=== PATIENT | female | born 1985 | race Caucasian/White ===

== ENCOUNTER 2019-10-11 12:20 | Emergency (ER) | payer SELFPAY ==
[2019-10-11 12:28] VITALS: BP 157/99; PULSE 97; RESP 16; TEMP 36.5; O2SAT 98; BMI 35.9
--- NOTE | 2019-10-11 12:49 | W.ED.HA ---
HPI - Headache General: Chief Complaint: Headache Stated Complaint: headache Time Seen by Provider: 10/11/19 12:42 Source: patient Mode of arrival: ambulatory Limitations: no limitations History of Present Illness: HPI Narrative: Harman is a 34-year-old female who comes in complaining of headache. She states this is a migraine headache. She states that she got food poisoning earlier in the week with diarrhea and abdominal cramping that went on for 4 days. She did not have a fever and she had no nausea or vomiting. She states that she feels that she got dehydrated and the headache began after this. Headache was gradual in onset and is global in location. She describes it as severe. Headache is been going on for at least 3 days. She has had headaches last this long before and had to come to the ER to get relief. She has no neck pain or stiffness and she denies any fever. Headache was not sudden onset thunderclap-like in nature. Patient has associated photophobia and phonophobia. She has nausea but no vomiting. Patient has not tried anything to make this better or worse. She denies any other complaints or concerns. Associated symptoms: Reports nausea; Deny chest pain, confusion, diaphoresis, fever(s), lightheadedness, malaise, pre-syncope, rash, syncope or vomiting Review of Systems Const: Denies: fever(s), chills, body aches, fatigue, malaise or diaphoresis Eyes: Denies: change in vision, blurry vision, photophobia, eye discomfort, eye discharge or eye redness ENMT: Denies: throat pain, odynophagia, hoarseness, swelling of lips/tongue, ear or mastoid pain, ear discharge, change in hearing or nasal discharge Card: Denies: chest pain, palpitations, irregular heart rhythm, edema, lightheadedness, syncope, pre-syncope, dyspnea on exertion or orthopnea Resp: Denies: dyspnea, productive cough, non-productive cough, wheezing, hemoptysis or chest congestion GI: Reports: nausea; Denies: abdominal pain, vomiting, hematemesis, coffee ground emesis, heartburn, diarrhea, constipation, GI cramping, hematochezia or melena : Denies: flank pain, dysuria, urinary frequency, urinary urgency or hematuria Musc: Denies: neck pain, back pain, extremity pain, extremity swelling, joint pain, joint swelling, joint redness, joint warmth or joint stiffness Skin/Breast: Denies: rash, pruritus, erythema or skin tenderness Neuro: Reports: headache(s); Denies: numbness in extremities, weakness in extremities, sensory changes, lack of coordination, difficulty walking, dizziness, vertigo, confusion, Slurred speech present or seizure-like activity Bonifacio/Lymph: Denies: easy bruising, easy bleeding, petechiae, purpura or enlarged lymph nodes All/Imm: Denies: urticaria, throat swelling, tongue swelling, facial swelling or acute wheezing PFSH ED PFSH: Medical History COPD (chronic obstructive pulmonary disease) Hepatitis C Migraines Traumatic brain injury Social History Smoking and tobacco status: heavy tobacco smoker Alcohol intake: never Substance/Drug Use: current Substance/Drug use frequency: daily Substance/Drug use type: Marijuana Physical Exam Const: COMMON NORMALS: no acute distress, patient oriented x3, no limitations, healthy appearing and well nourished GENERAL APPEARANCE: cooperative, well kempt and well developed HENMT: COMMON NORMALS: normocephalic, atraumatic, external ears normal, EAC's normal and Normal external nose present HEAD & SCALP: normal to inspection, normocephalic and atraumatic FACE & SINUS: normal facial exam and face symmetric NOSE: Normal external nose present and Normal nares present EXTERNAL EAR: Yes external ears normal EXTERNAL AUDITORY CANAL: EAC's normal MOUTH: Normal oral and palatal mucosa present, lip normal and tongue normal Eye: COMMON NORMALS: Equal, round and reactive pupils present and conjunctivae normal GENERAL EYE: appearance normal, both eyes and all related structures ALIGNMENT: Yes alignment normal PERIORBITAL: periorbital findings normal EYELID: eyelids normal CONJUNCTIVA: Yes conjunctivae normal SCLERA: sclerae normal PUPIL: Yes Equal, round and reactive pupils present Neck/C-Spine: COMMON NORMALS: full ROM, no lymphadenopathy, supple, no meningeal signs and no JVD GENERAL: Yes normal visual inspection and Yes trachea midline Chest: COMMONS NORMALS: normal inspection of the chest and normal palpation of entire chest wall Resp: COMMON NORMALS: normal respiratory effort, No retractions, No use of accessory muscles and clear to auscultation bilaterally EFFORT & INSPECTION: Yes able to speak in complete sentences and Yes symmetric chest movement AUSCULTATION: clear to auscultation bilaterally, no crackles, no rales, no rhonchi and no wheezes Cardio: COMMON NORMALS: no JVD, regular rate, regular rhythm, S1 normal heart sound present and S2 normal heart sound present RATE: regular rate RHYTHM: regular rhythm HEART SOUNDS: S1 normal heart sound present, S2 normal heart sound present, no click, no gallops, no murmurs, no rubs and abnormal split S2 GI: COMMON NORMALS: Soft to palpation and No hepatosplenomegaly present PALPATION: Yes Soft to palpation, No Tenderness to palpation present (GI), No Guarding due to palpation present (GI), No Rigid due to palpation, Yes No hepatosplenomegaly present, No Hernia present, No Palpable mass present and No Pulsatile mass present : COMMON NORMALS: Yes no CVA tenderness BLADDER/KIDNEY EXAM: Yes no CVA tenderness EXTERNAL FEMALE EXAM: No Hernia present Back/Pelvis: COMMON NORMALS: no CVA tenderness, thoracic and lumbar spine normal to inspection, no thoracic nor lumbar tenderness and thoraco-lumbar ROM normal Extremity: COMMON NORMALS: normal to inspection, full ROM, capillary refill normal, no joint enlargement, no clubbing, cyanosis or edema and no calf tenderness Neuro: COMMON NORMALS: patient oriented x3, CN's II-XII intact bilaterally, moves all extremities, no focal motor deficits and no sensory deficits noted MENINGEAL SIGNS: Yes no meningeal signs SPEECH: speech normal Psych: COMMON NORMALS: mental status grossly normal, Normal thought process present, cooperative, normal affect, speech normal and activity/motor behavior normal APPEARANCE: Yes well kempt SPEECH: Yes normal speech THOUGHT PROCESS: Normal thought process present Skin: COMMON NORMALS: no rashes or lesions noted, turgor normal, no jaundice, no petechiae and no mottling GENERAL SKIN EXAM: no rashes or lesions noted and turgor normal Course Vital Signs: Vital signs: Vital Signs Temperature 97.7 F 10/11/19 12:28 Pulse Rate 71 10/11/19 13:13 Respiratory Rate 20 H 10/11/19 13:13 Blood Pressure 120/71 10/11/19 13:13 Pulse Oximetry 97 10/11/19 13:13 MDM - Headache MDM Narrative: Medical decision making narrative: Arrival -patient presents with migraine headache type symptoms that have been going on for 3 days. Patient did not have a sudden onset thunderclap headache or fever or neck stiffness. Patient had preceding viral gastroenteritis which has resolved. Differential includes migraine headache, meningitis, subarachnoid hemorrhage, pseudotumor cerebri among others. Clinically at this time based upon exam and history I do not believe subarachnoid hemorrhage nor meningitis are likely. I have offered work-up including lab, CT but the patient declines. I will go ahead and proceed with treating her for migraine. 1330 -the patient is feeling better with no pain almost immediately after her meds were given. She is wanting to go home already. I see no sign of acute life threat as a cause for her headache. Her headache has responded to migraine medications. I will get a discharge her home with instructions to return should her symptoms change or worsen but at this time she is feeling better and is ready to go home. Discharge Plan Discharge Patient Disposition: Home Clinical Impression: Migraines Qualifiers: Migraine type: without aura Status migrainosus presence: with status migrainosus Intractability: not intractable Qualified Code(s): G43.001 - Migraine without aura, not intractable, with status migrainosus Condition: Stable Discharge Orders: Discharge Order (Routine); Ordered 10/11/19 Ordered By: Chelita Toure Referrals: Dejah Alston MD [Physician] - 1-3 days Discharge Diet: Advance as tolerated Discharge Activity: Increase activity as tolerated Patient Instructions: Migraine Headache (ED), Acute Headache (ED) Activity Restrictions/Additional Instructions: Please return to the ER immediately for any of the signs or symptoms listed on your discharge instruction sheets, worsening/changing of your symptoms, you are not getting better as quickly as expected, or for ANY other cause or concerns. Coding Level of Care Code ED [employer] Exam Comprehensive
[2019-10-11 12:58] VITALS: BP 142/81; PULSE 73; RESP 18; O2SAT 96
[2019-10-11] MEDS: metoclopramide 5 mg/mL SDV 2 mL 10 MG IV (13:03)
[2019-10-11] MEDS: ketorolac 30 mg/mL INJ 10 MG IVP (13:03)
[2019-10-11] MEDS: diphenhydrAMINE 50 mg/mL SDV 1mL 25 MG IVP (13:03)
[2019-10-11] MEDS: sodium chloride 0.9% 1,000 ML 999 ML IV (13:07)
[2019-10-11 13:13] VITALS: BP 120/71; PULSE 71; RESP 20; O2SAT 97
[2019-10-11 14:10] VITALS: BP 115/44; PULSE 67; RESP 18; TEMP 36.4; O2SAT 97
== END 2019-10-11 14:13 | disposition home or self-care (01) ==
PROVIDERS: Emergency Provider Emergency Medicine
DX: G43.001 Migraine without aura, not intractable, with status migrainosus (principal); J44.9 Chronic obstructive pulmonary disease, unspecified; Z86.19 Personal history of other infectious and parasitic diseases; F17.210 Nicotine dependence, cigarettes, uncomplicated
CPT/HCPCS: 12345; 96361; 96374; 96375; 99283; J1200; J1885; J2765; J7030

== ENCOUNTER 2020-02-10 16:03 | Inpatient (IN) | payer SELFPAY ==
[2020-02-10] VITALS (13 sets, daily range): BP systolic 113–162; BP diastolic 59–126; PULSE 64–110; RESP 14–18; TEMP 36.6–36.7; O2SAT 93–100; BMI 34.9
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
--- NOTE | 2020-02-10 18:23 | ED_ITS ---
HPI - Psych General: Chief Complaint: Psychiatric Symptoms Stated Complaint: manic episode, requesting medicine Time Seen by Provider: 02/10/20 17:49 Source: patient Mode of arrival: ambulatory Limitations: no limitations History of Present Illness: HPI Narrative: Harman is a nice 34-year-old female who comes in complaining of manic behavior. Patient states for the past several days she has been wanting people to hurt her and she is been trying to hurt herself because of this caleb. Patient states she needs to be on Zyprexa but cannot afford the medication. She currently denies any homicidal or suicidal ideation but she states she needs to get help. She is here requesting help. Review of Systems Const: Denies: fever(s), chills, body aches, fatigue, malaise or diaphoresis Eyes: Denies: change in vision, blurry vision, photophobia, eye discomfort, eye discharge, eye redness or yellow eyes ENMT: Denies: throat pain, odynophagia, hoarseness, swelling of lips/tongue, ear or mastoid pain, ear discharge, change in hearing or nasal discharge Card: Denies: chest pain, palpitations, irregular heart rhythm, edema, lightheadedness, syncope, pre-syncope, dyspnea on exertion or orthopnea Resp: Denies: dyspnea, productive cough, non-productive cough, wheezing, hemoptysis or chest congestion GI: Denies: abdominal pain, nausea, vomiting, hematemesis, coffee ground emesis, heartburn, diarrhea, constipation, GI cramping, hematochezia or melena : Denies: flank pain, dysuria, urinary frequency, urinary urgency or hematuria Musc: Denies: neck pain, back pain, extremity pain, extremity swelling, joint pain, joint swelling, joint redness, joint warmth or joint stiffness Skin/Breast: Denies: rash, pruritus, erythema, skin pain or skin tenderness Neuro: Denies: headache(s), numbness in extremities, weakness in extremities, sensory changes, lack of coordination, difficulty walking, dizziness, vertigo, confusion, Slurred speech present or seizure-like activity Psych: Reports: other (See HPI) Bonifacio/Lymph: Denies: easy bruising, easy bleeding, petechiae, purpura or enlarged lymph nodes All/Imm: Denies: urticaria, throat swelling, tongue swelling, facial swelling or acute wheezing PFSH ED PFSH: Medical History COPD (chronic obstructive pulmonary disease) Hepatitis C Migraines Traumatic brain injury Social History Smoking and tobacco status: current every day smoker cigarettes Packs smoked per day: 0.5 Alcohol intake: never Substance/Drug Use: current Substance/Drug use frequency: daily Substance/Drug use type: Marijuana Physical Exam Const: COMMON NORMALS: no acute distress, patient oriented x3, no limitations and alert GENERAL APPEARANCE: cooperative HENMT: COMMON NORMALS: external ears normal, EAC's normal and Normal external nose present HEAD & SCALP: normal to inspection FACE & SINUS: normal facial exam and face symmetric NOSE: Normal external nose present and Normal nares present EXTERNAL EAR: Yes external ears normal EXTERNAL AUDITORY CANAL: EAC's normal MOUTH: Normal oral and palatal mucosa present, lip normal and tongue normal Eye: COMMON NORMALS: Equal, round and reactive pupils present and conjunctivae normal GENERAL EYE: appearance normal, both eyes and all related structures ALIGNMENT: Yes alignment normal CONJUNCTIVA: Yes conjunctivae normal SCLERA: sclerae normal PUPIL: Yes Equal, round and reactive pupils present EOM: No movement deficit OTHER: Left periorbital area with significant swelling and contusion. With lid opened no evidence of hyphema and patient states her vision is normal. Neck/C-Spine: COMMON NORMALS: full ROM, no lymphadenopathy, supple, no meningeal signs and no JVD GENERAL: Yes normal visual inspection and Yes trachea midline Chest: COMMONS NORMALS: normal inspection of the chest and normal palpation of entire chest wall Resp: COMMON NORMALS: normal respiratory effort, No retractions, No use of accessory muscles and clear to auscultation bilaterally EFFORT & INSPECTION: Yes able to speak in complete sentences and Yes symmetric chest movement AUSCULTATION: clear to auscultation bilaterally, no crackles, no rales, no rhonchi and no wheezes Cardio: COMMON NORMALS: no JVD, regular rate, regular rhythm, S1 normal heart sound present and S2 normal heart sound present RATE: regular rate RHYTHM: regular rhythm HEART SOUNDS: S1 normal heart sound present, S2 normal heart sound present, no click, no gallops, no murmurs and no rubs GI: COMMON NORMALS: Soft to palpation and No hepatosplenomegaly present PALPATION: Yes Soft to palpation, No Tenderness to palpation present (GI), No Guarding due to palpation present (GI), No Rigid due to palpation, Yes No hepatosplenomegaly present, No Hernia present, No Palpable mass present and No Pulsatile mass present : COMMON NORMALS: Yes no CVA tenderness BLADDER/KIDNEY EXAM: Yes no CVA tenderness EXTERNAL FEMALE EXAM: No Hernia present Back/Pelvis: COMMON NORMALS: no CVA tenderness, thoracic and lumbar spine normal to inspection, no thoracic nor lumbar tenderness and thoraco-lumbar ROM normal Extremity: COMMON NORMALS: normal to inspection, full ROM, capillary refill normal, no joint enlargement, no clubbing, cyanosis or edema and no calf tenderness Neuro: COMMON NORMALS: patient oriented x3, CN's II-XII intact bilaterally, moves all extremities, no focal motor deficits and no sensory deficits noted SENSORIUM/ORIENTATION: Yes alert MENINGEAL SIGNS: Yes no meningeal signs SPEECH: speech normal Psych: COMMON NORMALS: mental status grossly normal, Normal thought process present, cooperative, normal affect, speech normal and activity/motor behavior normal SPEECH: Yes normal speech THOUGHT PROCESS: Normal thought process present Skin: COMMON NORMALS: no rashes or lesions noted, turgor normal, no jaundice, no petechiae and no mottling GENERAL SKIN EXAM: no rashes or lesions noted and turgor normal MDM - Psych MDM Narrative: Medical decision making narrative: Patient wants to be admitted and I believe does need admitted. Case reviewed with Dr. Chavira and he agrees to this. Discharge Plan Discharge Patient Disposition: Admitted As Inpatient Admit Provider: Kendall Chavira Condition: Stable Prescriptions: No Action Zyrtec 10 mg Tablet 10 mg PO DAILY PRN (Reason: Allergy Symptoms) RF: 0 Zyprexa 5 mg Tablet 5 mg PO PRN RF: 0 Aspir-81 81 mg Tablet,Delayed Release (Dr/Ec) 81 - 162.5 mg PO PRN RF: 0 Tylenol Extra Strength 500 mg Tablet 500 mg PO PRN RF: 0 ibuprofen 200 mg Tablet 400 mg PO PRN RF: 0 Singulair 10 mg Tablet 10 mg PO DAILY PRN (Reason: Allergy Symptoms) RF: 0 ProAir HFA 90 mcg/actuation Hfa Aerosol Inhaler 2 puff INHALATION Q4H PRN (Reason: Shortness Of Breath) RF: 0 Flonase 50 mcg/actuation [place],Suspension 2 spray INTRANASAL DAILY PRN (Reason: Allergy Symptoms) RF: 0 Coding Level of Care Code 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
[2020-02-10] MEDS: OLANZapine 5 mg TABLET PO (19:26)
[2020-02-10 20:36] LABS: Basophils # 0.1 10^3/uL (0.0-0.1); Basophils % 0.6 %; Eosinophils # 0.3 10^3/uL (0.0-0.8); Eosinophils % 2.2 %; Hemoglobin 13.5 g/dL (11.5-15.3); Lymphocytes # 4.9 10^3/uL (0.8-4.8); Lymphocytes % 38.2 %; Mean Corpuscular HGB Conc 32.1 g/dL (30.0-36.0); Mean Corpuscular Volume 93.3 fL (81-99); Monocytes # 0.9 10^3/uL (0.2-0.9); Monocytes % 6.8 %; Nucleated Red Blood Cells % 0 %; Platelet Count 255 10^3/cmm (130-400); Red Cell Distribution Width 12.5 % (12.1-15.1); White Blood Count 12.9 10^3/uL (4.0-10.0)
[2020-02-10 20:50] LABS: HCG, Serum Qual Negative (Negative)
[2020-02-10 21:02] LABS: Alanine Aminotransferase 19 U/L (0-33); Albumin Level 3.9 g/dL (3.5-5.2); Alkaline Phosphatase 80 IU/L (35-105); Anion Gap 15.2 (5-19); Aspartate Amino Transferase 21 U/L (0-32); Blood Urea Nitrogen 6 mg/dL (6-20); Calcium 9.1 mg/dL (8.5-10.5); Carbon Dioxide 22 mmol/L (22-29); Chloride 106 mmol/L (98-107); Glomerular Filtration Rate 140.4 mL/min (90-130); Glucose 98 mg/dL (65-115); Osmolality Calculated 288 mOsm/kg (285-295); Potassium 3.2 mmol/L (3.5-5.1); Sodium 140 mmol/L (136-145); Thyroid Stimulating Hormone 0.65 uIU/mL (0.27-4.20); Total Protein 6.9 g/dL (6.6-8.7)
[2020-02-10 21:03] LABS: Acetaminophen < 5.0 ug/mL (10-30); Alcohol Level < 10 mg/dL (0-10); Salicylate < 0.3 mg/dL (3-10)
[2020-02-10] MEDS: potassium chloride ER 20 mEq Tablet PO (21:55)
[2020-02-10] MEDS: acetaminophen 325 mg Tablet 650 MG PO (23:14)
--- NOTE | 2020-02-10 23:43 | PC.NURSE ---
Harman is a nice 34-year-old female who comes in complaining of manic behavior. Patient states, I lost my sister a week ago Sunday. (FEB 05). Patient states for the past several days she has been wanting people to hurt her and she is been trying to hurt herself because of this caleb. Patient states she needs to be on Zyprexa but cannot afford the medication. She currently denies any homicidal or suicidal ideation but she states she needs to get help. She is here requesting help. Pt states, I don't like to take scheduled medication because my body gets used to it and then I need more and more. I like the Zyprexa because I can take it when I need it. This patient prefers herbal remedies. She disclosed her living situation as living in a teepee with an outdoor kitchen. 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
--- NOTE | 2020-02-11 00:52 | PC.NURSE ---
Nonremovable piercing Pt has a non removable Ivory piercing,
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
[2020-02-11 06:00] VITALS: BP 125/83; PULSE 79; RESP 18; TEMP 36.4; O2SAT 96
[2020-02-11] MEDS: nicotine 21 mg Patch 1 PATCH TRANSDERMA (11:53)
[2020-02-11] MEDS: acetaminophen 325 mg Tablet 650 MG PO (11:53)
[2020-02-11 12:35] VITALS: BP 131/82; PULSE 71; RESP 16; TEMP 36.8; O2SAT 95
--- NOTE | 2020-02-11 12:42 | P.HP_ITS ---
Providers/Chief Complaint Admitting Physician: Kendall Chavira MD Chief Complaint: NEED MEDICATIONS HPI NPU History of Present Illness Harman Tovar is a 34 year old female who presented to the emergency department with the following report: Chief Complaint: Psychiatric Symptoms Stated Complaint: manic episode, requesting medicine Time Seen by Provider: 02/10/20 17:49 Source: patient Mode of arrival: ambulatory Limitations: no limitations History of Present Illness: HPI Narrative: Harman is a nice 34-year-old female who comes in complaining of manic behavior. Patient states for the past several days she has been wanting people to hurt her and she is been trying to hurt herself because of this caleb. Patient states she needs to be on Zyprexa but cannot afford the medication. She currently denies any homicidal or suicidal ideation but she states she needs to get help. She is here requesting help. She was admitted to the neuropsychiatric unit for definitive treatment of those issues. Harman presented to the appointment as a fairly poor historian who was reporting some things that were hard to follow. The essence of her story was that in her life she has taken Zyprexa as a medication but does not take it all the time, reports taking it as needed. When she is having these manic and vqg-bs-yldpxrg moments Zyprexa is very helpful getting her out of those.. However she does not like taking it every day and will not ascribe to taking it all the time. She reports that something occurred that made it so that she could go to her normal provider and she did not have a PCP anymore that could prescribe the medication and this has been the case for several months. So she reports that she has had multiple episodes where things got out of control and she has not had her Zyprexa for that solution. She went to a different hospital in the [facility] and advised him of her situation and she reports that she was essentially turned away without any support. She came to this emergency department and was given some Zyprexa in the emergency department and is hopeful that she can get her medication restarted at discharge. We discussed the risk benefits and alternatives of starting the Zyprexa 10 mg p.o. nightly and she understood and agreed to proceed as is documented in this note. We discussed the fact that it would be my recommendation for her to take it every night. She is a voluntary patient and expressed a desire and plan for discharge tomorrow. Psychiatric history: She reports numerous inpatient hospitalizations with limited follow-up. Substance abuse history: She denied active substance abuse issues. Family history: She reported significant family history of mental health and addiction issues. Developmental history: She denied issues with her or delivery. Based on her historical reports there is likely some developmental delay but there may have been a TBI in her history. Psychosocial history: Reports that she does have a place to live and will return there tomorrow. She was a poor historian and attempting to gather a broad history. Legal history: She denied current legal peril. Medical history: She denied any acute medical issues. Meds NPU Home Medications Medication Instructions Recorded Confirmed Last Taken Type acetaminophen [Tylenol Extra 500 mg PO PRN 02/10/20 02/10/20 Unknown History Strength] albuterol sulfate [ProAir HFA] 2 puff INHALATION Q4H PRN 02/10/20 02/10/20 Unknown History aspirin [Aspir-81] 81 - 162.5 mg PO PRN 02/10/20 02/10/20 Unknown History cetirizine [Zyrtec] 10 mg PO DAILY PRN 02/10/20 02/10/20 Unknown History fluticasone propionate [Flonase] 2 spray INTRANASAL DAILY PRN 02/10/20 02/10/20 Unknown History ibuprofen 400 mg PO PRN 02/10/20 02/10/20 Unknown History montelukast [Singulair] 10 mg PO DAILY PRN 02/10/20 02/10/20 Unknown History olanzapine [Zyprexa] 5 mg PO PRN 02/10/20 02/10/20 Unknown History Allergies Allergy/AdvReac Type Severity Reaction Status Date / Time amphetamine [From Adderall] Allergy ALGY-Anaphy Verified 02/10/20 18:17 laxis cephalexin [From Keflex] Allergy ADR-Itching Verified 02/10/20 18:17 dextroamphetamine Allergy ALGY-Anaphy Verified 02/10/20 18:17 [From Adderall] laxis haloperidol [From Haldol] Allergy ADR-Cramping Verified 02/10/20 18:17 of the Muscles niacin Allergy ALGY-Bliste Verified 02/10/20 18:17 r sulfamethoxazole Allergy ADR-Itching Verified 02/10/20 18:17 [From Bactrim] trimethoprim [From Bactrim] Allergy ADR-Itching Verified 02/10/20 18:17 silk tape Allergy ALGY-Rash Uncoded 10/11/19 12:36 PFSH NPU PFSH: Medical History (Updated 02/12/20 @ 06:39 by Kendall Chavira MD) COPD (chronic obstructive pulmonary disease) Hepatitis C Migraines Traumatic brain injury Social History Smoking and tobacco status: current every day smoker cigarettes Packs smoked per day: 0.5 Alcohol intake: never Substance/Drug Use: current Substance/Drug use frequency: daily Substance/Drug use type: Marijuana Mental Status Exam MSE Comments: This is an obese white female with short hair in hospital scrubs with adequate grooming and eye contact. No abnormal movements except for mild psychomotor agitation. Cooperative with exam in no acute distress. Speech was slightly increased rate and normal volume with some dysarthria likely secondary to poor dentition. Mood described as much better, affect slightly energetic. Thought process mostly organized. Thought content: Patient denied suicidal or homicidal ideation, there were no delusions reported or noted, she denied any auditory or visual hallucinations. Attention and concentration were intact and memory appeared unreliable but none were formally tested. She is alert and oriented x3. Insight and judgment are limited, impulse control is limited, instability is likely impaired. Vitals/I&O/Wt Last Vital Signs Temp 98.2 F 02/11/20 12:35 Pulse 71 02/11/20 12:35 Resp 16 02/11/20 12:35 BP 131/82 02/11/20 12:35 Pulse Ox 95 02/11/20 12:35 Weight last 48 hrs Weight 85.275 kg Data NPU : 02/10/20 20:15 02/10/20 20:15 A&P Assessment and plan (1) Traumatic brain injury: Status: Acute (2) Mood disorder: Status: Acute (3) Personality disorder: Status: Acute Additional A&P Information This is a 34-year-old white female with a long history of mental health issues and reported traumatic brain injury we reportedly has been on Zyprexa for presents off of medication interested in getting that restarted and being connected with services. 1. Continue current medication. Start Zyprexa 10 mg p.o. nightly. 2. Continue every 15 minute checks for safety. 3. Encourage individual, group and milieu therapy. 4. Get resources in place from mental treatment prior to discharge tomorrow. Involuntary Hold Information 96 Hour Hold: 96 Hour Involuntary Admission: No Attestations NPU Medical Necessity Statement*: Inpatient hospitalization is medically necessary and the clinically appropriate intervention at this time. We will donations and make changes as indicated. Plan for discharge tomorrow. 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
--- NOTE | 2020-02-11 19:34 | PC.NURSE ---
The patient has a wound under her right great toe. The tissue is pink. There is no sign of infection. The patient has two skin tears on her right forearm, each about 1 cm. There is some redness around the injuries. Called Dr. Chavira. Triple antibiotic ointment ordered bid to the affected areas.
[2020-02-11] MEDS: ibuprofen 200 mg Tablet 400 MG PO (19:46)
[2020-02-11 21:01] VITALS: BP 152/90; PULSE 77; RESP 18; TEMP 36.6; O2SAT 99
[2020-02-11] MEDS: neomycin-poly-bacitracin oint 28 gm 1 APPLIC TOPICAL (21:40)
[2020-02-12 01:40] VITALS: PULSE 74; RESP 18; O2SAT 99
[2020-02-12 06:00] VITALS: BP 148/78; PULSE 84; RESP 18; TEMP 36.2; O2SAT 96
[2020-02-12 07:26] VITALS: BP 148/78; PULSE 84; RESP 18; TEMP 36.2; O2SAT 96
--- NOTE | 2020-02-12 14:17 | P.DS_ITS ---
Diagnoses at Discharge Discharge Diagnosis (1) Traumatic brain injury: Status: Acute (2) Mood disorder: Status: Acute (3) Personality disorder: Status: Acute Reason for Visit Reason for Visit: NEED MEDICATIONS Brief History: History of Present Illness Harman Tovar is a 34 year old female who presented to the emergency department with the following report: Chief Complaint: Psychiatric Symptoms Stated Complaint: manic episode, requesting medicine Time Seen by Provider: 02/10/20 17:49 Source: patient Mode of arrival: ambulatory Limitations: no limitations History of Present Illness: HPI Narrative: Harman is a nice 34-year-old female who comes in complaining of manic behavior. Patient states for the past several days she has been wanting people to hurt her and she is been trying to hurt herself because of this caleb. Patient states she needs to be on Zyprexa but cannot afford the medication. She currently denies any homicidal or suicidal ideation but she states she needs to get help. She is here requesting help. She was admitted to the neuropsychiatric unit for definitive treatment of those issues. Harman presented to the appointment as a fairly poor historian who was reporting some things that were hard to follow. The essence of her story was that in her life she has taken Zyprexa as a medication but does not take it all the time, reports taking it as needed. When she is having these manic and fqn-nz-awdxrlt moments Zyprexa is very helpful getting her out of those.. However she does not like taking it every day and will not ascribe to taking it all the time. She reports that something occurred that made it so that she could go to her normal provider and she did not have a PCP anymore that could prescribe the medication and this has been the case for several months. So she reports that she has had multiple episodes where things got out of control and she has not had her Zyprexa for that solution. She went to a different hospital in the [facility] and advised him of her situation and she reports that she was essentially turned away without any support. She came to this emergency department and was given some Zyprexa in the emergency department and is hopeful that she can get her medication restarted at discharge. We discussed the risk benefits and alternatives of starting the Zyprexa 10 mg p.o. nightly and she understood and agreed to proceed as is documented in this note. We discussed the fact that it would be my recommendation for her to take it every night. She is a voluntary patient and expressed a desire and plan for discharge tomorrow. Psychiatric history: She reports numerous inpatient hospitalizations with limited follow-up. Substance abuse history: She denied active substance abuse issues. Family history: She reported significant family history of mental health and addiction issues. Developmental history: She denied issues with her or delivery. Based on her historical reports there is likely some developmental delay but there may have been a TBI in her history. Psychosocial history: Reports that she does have a place to live and will return there tomorrow. She was a poor historian and attempting to gather a broad history. Legal history: She denied current legal peril. Medical history: She denied any acute medical issues. Hospital Course Hospital Course Harman presented to the emergency department with odd and at times self abusive behavior. She was admitted to the neuropsychiatric unit for definitive treatment of those issues. It was noted that she was off of the Zyprexa which she reports had been maintaining her and allowing her to be stable and out of the hospital. She slowly acclimated to the individual, group and milieu therapies provided. Restart Zyprexa with a modest improvement. She was able to contract for safety and was desiring discharge from the hospital. During the hospitalization, patient had routine laboratory studies which were within normal limits except for few outliers. Additionally he had a general medical evaluation which was also within normal limits and revealed no new acute processes. Discharge Summary: At the time of discharge, lethality was denied and psychosis was resolving. Mood and anxiety were well managed. Patient endorsed a plan to avoid all drugs of abuse and follow-up with the aftercare recommendations of the treatment team. Patient was evaluated and deemed to be absent credible lethality, and was a voluntary patient not desiring continued inpatient treatment, so was discharged. Involuntary Hold Information 96 Hour Hold: 96 Hour Involuntary Admission: No Mental Status Exam MSE Comments: This is an obese white female with short hair in hospital scrubs with adequate grooming and eye contact. No abnormal movements. Cooperative with exam in no acute distress. Speech was more normal rate and volume with some dysarthria likely secondary to poor dentition. Mood described as better, affect congruent. Thought process mostly organized. Thought content: Patient denied suicidal or homicidal ideation, there were no delusions reported or noted, she denied any auditory or visual hallucinations. Attention and concentration were intact and memory appeared more reliable but none were formally tested. She is alert and oriented x3. Insight and judgment are limited, but improving, impulse control is limited, intellectual ability is likely impaired. Discharge Data Data Completed and Pending: Completed Studies During Hospitalization Category Date Time Status CT facial bones w o con* 47139 Urgen t Cat Scan 02/10/20 16:[address] head wo con* 7 0450 Urgent Cat Scan 02/10/20 16:33 Completed XR hand RT min 3V * [id number] Stat Exams 02/10/20 16:33 Completed XR wrist LT min 3 V* [id number] Stat Exams 02/10/20 16:33 Completed Vitals: Last Vital Signs Temp 97.2 F L 02/12/20 07:26 Pulse 84 02/12/20 07:26 Resp 18 02/12/20 07:26 BP 148/78 02/12/20 07:26 Pulse Ox 96 02/12/20 07:26 Discharge Plan Discharge Patient Disposition: Home Condition: Stable Prescriptions: Continued Zyrtec 10 mg Tablet 10 mg PO DAILY PRN (Reason: Allergy Symptoms) RF: 0 aspirin 81 mg Tablet,Delayed Release (Dr/Ec) 81 - 162.5 mg PO PRN RF: 0 Tylenol Extra Strength 500 mg Tablet 500 mg PO PRN RF: 0 ibuprofen 200 mg Tablet 400 mg PO PRN RF: 0 Singulair 10 mg Tablet 10 mg PO DAILY PRN (Reason: Allergy Symptoms) RF: 0 ProAir HFA 90 mcg/actuation Hfa Aerosol Inhaler 2 puff INHALATION Q4H PRN (Reason: Shortness Of Breath) RF: 0 fluticasone propionate 50 mcg/actuation [place],Suspension 2 spray INTRANASAL DAILY PRN (Reason: Allergy Symptoms) RF: 0 Zyprexa 5 mg Tablet 5 mg PO PRN 30 Days Qty: 30 RF: 1 Discharge Orders: Discharge Order (Routine); Ordered 02/12/20 Ordered By: Kendall Chavira Referrals: [facility] [Outside] (Your admission referral was done while you were hospitalized. 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
== END 2020-02-12 12:17 | disposition home or self-care (01) | DRG 885 ==
LOC: ER 17:49 → NP 19:05
PROVIDERS: Admitting Provider Psychiatry & Neurology Psychiatry; Emergency Provider Emergency Medicine; Visit Provider Psychiatry & Neurology Psychiatry
DX: F39 Unspecified mood [affective] disorder (principal); F60.9 Personality disorder, unspecified; Z87.820 Personal history of traumatic brain injury; Z79.82 Long term (current) use of aspirin; J44.9 Chronic obstructive pulmonary disease, unspecified; B19.20 Unspecified viral hepatitis C without hepatic coma; F17.210 Nicotine dependence, cigarettes, uncomplicated
CPT/HCPCS: 12345; 70450; 70486; 73110; 73130; 80053; 80307; 84443; 84703; 85025; 94640; 99284

== ENCOUNTER 2022-08-08 11:23 | Emergency (ER) | payer MEDICAID, SELFPAY ==
[2022-08-08] VITALS (8 sets, daily range): BP systolic 109–127; BP diastolic 9–79; PULSE 48–107; RESP 16–25; TEMP 36.7; O2SAT 96–100
--- NOTE | 2022-08-08 11:45 | XR_ITS ---
WS: [id number] EXAMINATION: XR chest 2V* [id number] REASON FOR EXAM: sob COMPARISON: None available. ORDER DATE: 08/08/2022 11:45 AM FINDINGS: The lungs are clear of infiltrate. The cardiac and mediastinal outlines are unremarkable. There ar e no significant pleural effusions . No significant abnormalities are noted in the spine or remainder of the bony thorax. XR/XR chest 2V* [id number] IMPRESSION: NO ACUTE PULMONARY CHANGE.
--- NOTE | 2022-08-08 12:02 | ECG_ITS ---
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 Measurements Intervals [place] Rate: 94 P: 75 NC: 127 QRS: 65 QRSD: 84 T: 67 QT: 382 QTc: 479 Interpretive Statements SINUS RHYTHM POSSIBLE LEFT ATRIAL ENLARGEMENT [-0.1mV P-WAVE IN V1/V2] No previous ECG available for comparison Electronically Signed On 08-08-2022 16:21:14 CDT by Elke Guzmán M.D. [id number]
--- NOTE | 2022-08-08 12:15 | ED_ITS ---
Documented by User: MELLISA Rashid 08/08/22 17:18 HPI - SOB/Dyspnea General: Chief Complaint: Shortness of Breath/Dyspnea Stated Complaint: SOB, asthma Time Seen by Provider: 08/08/22 11:45 History of Present Illness: HPI Narrative: Patient is a 37-year-old female comes to the ED with shortness of breath and cough. Patient states that symptoms started approximately 3 days ago. They say that they went and smoked a bowl of weed with their neighbor 3 days ago before symptoms started. They are unsure of exactly what was in the weed the neighbor had but he called at some dope. Immediately after smoking weed patient says s he got anxious, elevated heart rate, developed a rash and shortness of breath. Some of her symptoms have resolved over the past couple days but she is still having increased anxiety and is coughing a lot. She also states she has not slept very much over the past couple days as well. Patient says she does have a history of marijuana use but has not used any other drugs within the last couple weeks. Patient says her cough is productive with thick clear sputum. Denies any current chest pain, fevers, nausea/vomiting, abdominal pain, bladder or bowel symptoms. Associated symptoms: Deny abdominal pain, chest pain, fever(s), nausea, orthopnea, palpitations or vomiting Review of Systems Const: Denies: fever(s), chills or fatigue Eyes: Denies: change in vision or eye discomfort ENMT: Denies: throat pain, odynophagia, nasal discharge or nasal congestion Card: Denies: chest pain, palpitations, edema, swelling of feet/ankles, dyspnea on exertion or orthopnea Resp: Reports: dyspnea and productive cough; Denies: non-productive cough GI: Denies: abdominal pain, nausea, vomiting, diarrhea, constipation or hematochezia : Denies: flank pain, dysuria or hematuria Musc: Denies: neck pain, back pain or extremity swelling Skin/Breast: Denies: rash or new lesions Neuro: Denies: headache(s), numbness in extremities or weakness in extremities [facility] ED PFSH: Medical History (Updated 08/08/22 @ 18:05 by MIKE Blas) COPD (chronic obstructive pulmonary disease) Hepatitis C Migraines No pertinent family history Traumatic brain injury Social History Smoking and tobacco status: current every day smoker cigarettes Packs smoked per day: 0.5 Alcohol intake: never Substance/Drug Use: current Substance/Drug use frequency: daily Physical Exam Const: COMMON NORMALS: patient oriented x3 and alert GENERAL APPEARANCE: cooperative, anxious and other (Patient is very fidgety and has rapid speech) HENMT: COMMON NORMALS: normocephalic HEAD & SCALP: normocephalic MOUTH: Normal oral and palatal mucosa present THROAT: posterior oropharynx normal an d uvula midline Neck/C-Spine: COMMON NORMALS: supple GENERAL: Yes normal visual inspection Resp: COMMON NORMALS: normal respiratory effort, No retractions, No use of accessory muscles and clear to auscultation bilaterally AUSCULTATION: clear to auscultation bilaterally Cardio: COMMON NORMALS: regular rate, regular rhythm, S1 normal heart sound present, S2 normal heart sound present, No gallops present (Cardio), No clicks present (Cardio), No murmurs present (Cardio) and Peripheral pulses 2+ throughout RATE: regular rate RHYTHM: regular rhythm HEART SOUNDS: S1 normal heart sound present and S2 normal heart sound present PERIPHERAL PULSES: Peripheral pulses 2+ throughout GI: COMMON NORMALS: Normal to inspection, nondistended, normoactive bowel sounds present, Soft to palpation, non-tender and no masses PALPATION: Yes Soft to palpation : COMMON NORMALS: Yes no CVA tenderness BLADDER/KIDNEY EXAM: Yes no CVA tenderness Back/Pelvis: COMMON NORMALS: no CVA tenderness Extremity: COMMON NORMALS: normal to inspection Neuro: COMMON NORMALS: patient oriented x3 SENSORIUM/ORIENTATION: Yes alert GAIT: Yes Normal gait present Skin: GENERAL SKIN EXAM: dry skin Course Vital Signs: Vital signs: Vital Signs Temperature 98.1 F 08/08/22 11:37 Pulse Rate 107 H 08/08/22 15:16 Respiratory Rate 16 08/08/22 15:16 Blood Pressure 124/79 08/08/22 15:16 Pulse Oximetry 98 08/08/22 15:16 Oxygen Delivery Me thod Room Air 08/08/22 15:16 Oxygen Flow Rate 2 08/08/22 15:00 MDM - SOB/Dyspnea Medical Decision Making Patient is a 37-year-old female comes to the ED with shortness of breath and cough. Patient states that symptoms started approximately 3 days ago. They say that they went and smoked a bowl of weed with their neighbor 3 days ago before symptoms started. They are unsure of exactly what was in the weed the neighbor had but he called at some dope. Immediately after smoking weed patient says she got anxious, elevated heart rate, developed a rash and shortness of breath. Some of her symptoms have resolved over the past couple days but she is still having increased anxiety and is coughing a lot. She also states she has not s lept very much over the past couple days as well. Patient says she does have a history of marijuana use but has not used any other drugs within the last couple weeks. Patient says her cough is productive with thick clear sputum. Denies any current chest pain, fevers, nausea/vomiting, abdominal pain, bladder or bowel symptoms. Patient's pulse has been slightly elevated around 107 but the rest of her vitals are stable. Potassium was 2.5 and the rest of CBC and CMP are unremarkable. D-dimer elevated at 1.35. Chest x-ray showed no acute findings. Troponins were negative. EKG showed no acute findings. CTA of chest is pending. patient was signed over to Jose Espinal nurse practitioner dispo pending CTA chest results.-Young Subramanian PA-C Lab Data I reviewed the patient's lab results. 08/08/22 12:14 08/08/22 17:07 Labs/Radiology: Radiology Impressions Chest X-Ray 08/08/22 11:45 IMPRESSION: NO ACUTE PULMONARY CHANGE. Chest CTA 08/08/22 13:15 IMPRESSION: 1. No evidence for pulmonary embolism. 2. Dependent atelectasis in the right lung. 3. Incidental/nonacute findings are listed in the report. Laboratory Results WBC 11.3 10^3/uL (4.0-10.0) H 08/08/22 12:14 RBC 4.06 10^6/uL (4.1-5.3) L 08/08/22 12:14 Hgb 12.2 g/dL (11.5-15.3) 08/08/22 12:14 Hct 35.3 % (37.0-47.0) L 08/08/22 12:14 MCV 86.9 fl (81-99) 08/08/22 12:14 MCH 30.0 pg (28.0-34.0) 08/08/22 12:14 MCHC 34.6 g/dL (30.0-36.0) 08/08/22 12:14 RDW 11.7 % (12.1-15.1) L 08/08/22 12:14 Plt Count 339 10^3/cmm (130-400) 08/08/22 12:14 MPV 11.6 fL (7.4-10.4) H 08/08/22 12:14 Neut % (Auto) 58.8 % 08/08/22 12:14 Lymph % (Auto) 27.5 % 08/08/22 12:14 [place] % (Auto) 10.2 % 08/08/22 12:14 Eos % (Auto) 2.7 % 08/08/22 12:14 Baso % (Auto) 0.4 % 08/08/22 12:14 Neut # (Auto) 6.64 10^3/uL (1.8-7.7) 08/08/22 12:14 Lymph # (Auto) 3.1 10^3/uL (0.8-4.8) 08/08/22 12:14 [place] # (Auto) 1.2 10^3/uL (0.2-0.9) H 08/08/22 12:14 Eos # (Auto) 0.3 10^3/uL (0.0-0.8) 08/08/22 12:14 Baso # (Auto) 0.1 10^3/uL (0.0-0.1) 08/08/22 12:14 Nucleated RBC % (auto) 0 % 08/08/22 12:14 Nucleated RBCs # 0.0 /100WBC 08/08/22 12:14 D-Dimer 1.35 ug/mIFEU (0-0.59) H 08/08/22 12:14 Sodium 139 mmol/L (136-145) 08/08/22 17:07 Potassium 2.6 mmol/L (3.5-5.1) L* 08/08/22 17:07 Chloride 106 mmol/L (98-107) 08/08/22 17:07 Carbon Dioxide 24 mmol/L (22-29) 08/08/22 17:07 Anion Gap 11.6 (5-19) 08/08/22 17:07 BUN 1 mg/dL (6-20) L 08/08/22 17:07 Creatinine 0.5 mg/dL (0.5-0.9) 08/08/22 17:07 GFR Calculation 138.1 mL/min (90-130) H 08/08/22 17:07 Glucose 108 mg/dL (65-115) 08/08/22 17:07 Calculated Osmolality 284 mOsm/kg (285-295) L 08/08/22 17:07 Calcium 8.1 mg/dL (8.5-10.5) L 08/08/22 17:07 Total Bilirubin 0.3 mg/dL (0.15-1.2) 08/08/22 17:07 AST 43 U/L (0-32) H 08/08/22 17:07 ALT 51 U/L (0-33) H 08/08/22 17:07 Alkaline Phosphatase 58 U/L (35-105) 08/08/22 17:07 Troponin T Baseline 11 ng/L (0-10) H 08/08/22 12:14 Troponin T 120 Minute 9.46 ng/L (0-10) 08/08/22 14:59 Delta Troponin T -1.54 ABS# (0-10) L 08/08/22 14:59 Total Protein 6.0 g/dL (6.6-8.7) L 08/08/22 17:07 Albumin 3.4 g/dL (3.5-5.2) L 08/08/22 17:07 Globulin 2.6 g/dL (1.3-4.6) 08/08/22 17:07 HCG, Qual Negative (Negative) 08/08/22 12:14 EKG Data EKG 1: EKG Interpretation Date: 08/08/22 Interpretation: Sinus rhythm, no ST segment elevation or depression seen. 91 bpm. Discharge Plan Discharge Patient Disposition: Home Clinical Impression: Hypokalemia Condition: Stable Prescriptions: New K-Tab 20 mEq tablet extended release 20 meq PO BID Qty: 14 0RF No Action azithromycin 250 mg Tablet 250 mg PO . DIRECTED Zyprexa 5 mg Tablet 5 mg PO DAILY PRN (Reason: manic episode) Discharge Orders: Discharge ED (Routine); Ordered 08/08/22 Ordered By: Jose Espinal Discharge Diet: Usual diet Discharge Activity: Increase activity as tolerated Patient Instructions: Hypokalemia (ED) Activity Restrictions/Additional Instructions: Drink plenty of water and fluids. Healthy diet and activity. When in the heat and sweating make sure to replace electrolytes with Gatorade solution or other electrolyte solutions including Pedialyte or other sports drinks. Follow-up with primary care in 1 week for recheck potassium level. Return to ER for new concerns. Sign Out Sign Out Data: Patient Sign Out occurred on 08/08/22 at 17:19. Patient's care was discussed, and care was transferred from to Jose Espinal. Coding Level of Care Code ED Socket Puller for Chg Fwd Documented by User: MIKE Blas 08/08/22 18:09 HPI - SOB/Dyspnea General: Chief Complaint: Shortness of Breath/Dyspnea Stated Complaint: SOB, asthma Time Seen by Provider: 08/08/22 11:45 [facility] ED PFSH: Medical History (Updated 08/08/22 @ 18:05 by MIKE Blas) COPD (chronic obstructive pulmonary disease) Hepatitis C Migraines No pertinent family history Traumatic brain injury Social History Smoking and tobacco status: current every day smoker cigarettes Packs smoked per day: 0.5 Alcohol intake: never Substance/Drug Use: current Substance/Drug use frequency: daily Course Vital Signs: Vital signs: Vital Signs Temperature 98.1 F 08/08/22 11:37 Pulse Rate 107 H 08/08/22 15:16 Respiratory Rate 16 08/08/22 15:16 Blood Pressure 124/79 08/08/22 15:16 Pulse Oximetry 98 08/08/22 15:16 Oxygen Delivery Me thod Room Air 08/08/22 15:16 Oxygen Flow Rate 2 08/08/22 15:00 MDM - SOB/Dyspnea Medical Decision Making Patient is a 37-year-old female comes to the ED with shortness of breath and cough. Patient states that symptoms started approximately 3 days ago. They say that they went and smoked a bowl of weed with their neighbor 3 days ago before symptoms started. They are unsure of exactly what was in the weed the neighbor had but he called at some dope. Immediately after smoking weed patient says she got anxious, elevated heart rate, developed a rash and shortness of breath. Some of her symptoms have resolved over the past couple days but she is still having increased anxiety and is coughing a lot. She also states she has not slept very much over the past couple days as well. Patient says she does have a history of marijuana use but has not used any other drugs within the last couple weeks. Patient says her cough is productive with thick clear sputum. Denies any current chest pain, fevers, nausea/vomiting, abdominal pain, bladder or bowel symptoms. Patient's pulse has been slightly elevated around 107 but the rest of her vitals are stable. Potassium was 2.5 and the rest of CBC and CMP are unremarkable. D-dimer elevated at 1.35. Chest x-ray showed no acute findings. Troponins were negative. EKG showed no acute findings. CTA of chest is pending. patient was signed over to Jose Espinal nurse practitioner dispo pending CTA chest results.-Young Subramanian PA-C A CT scan noted no significant abnormalities. Labs noted a low potassium. Believe patient symptoms were probably secondary to hypokalemia. We will keep patient on replacement of oral potassium and instructed her on electrolyte replacement especially during the heat. Patient reported understanding and recommendation for follow-up or return to the ER. Lab Data 08/08/22 12:14 08/08/22 17:07 Labs/Radiology: Radiology Impressions Chest X-Ray 08/08/22 11:45 IMPRESSION: NO ACUTE PULMONARY CHANGE. Chest CTA 08/08/22 13:15 IMPRESSION: 1. No evidence for pulmonary embolism. 2. Dependent atelectasis in the right lung. 3. Incidental/nonacute findings are listed in the report. Laboratory Results WBC 11.3 10^3/uL (4.0-10.0) H 08/08/22 12:14 RBC 4.06 10^6/uL (4.1-5.3) L 08/08/22 12:14 Hgb 12.2 g/dL (11.5-15.3) 08/08/22 12:14 Hct 35.3 % (37.0-47.0) L 08/08/22 12:14 MCV 86.9 fl (81-99) 08/08/22 12:14 MCH 30.0 pg (28.0-34.0) 08/08/22 12:14 MCHC 34.6 g/dL (30.0-36.0) 08/08/22 12:14 RDW 11.7 % (12.1-15.1) L 08/08/22 12:14 Plt Count 339 10^3/cmm (130-400) 08/08/22 12:14 MPV 11.6 fL (7.4-10.4) H 08/08/22 12:14 Neut % (Auto) 58.8 % 08/08/22 12:14 Lymph % (Auto) 27.5 % 08/08/22 12:14 [place] % (Auto) 10.2 % 08/08/22 12:14 Eos % (Auto) 2.7 % 08/08/22 12:14 Baso % (Auto) 0.4 % 08/08/22 12:14 Neut # (Auto) 6.64 10^3/uL (1.8-7.7) 08/08/22 12:14 Lymph # (Auto) 3.1 10^3/uL (0.8-4.8) 08/08/22 12:14 [place] # (Auto) 1.2 10^3/uL (0.2-0.9) H 08/08/22 12:14 Eos # (Auto) 0.3 10^3/uL (0.0-0.8) 08/08/22 12:14 Baso # (Auto) 0.1 10^3/uL (0.0-0.1) 08/08/22 12:14 Nucleated RBC % (auto) 0 % 08/08/22 12:14 Nucleated RBCs # 0.0 /100WBC 08/08/22 12:14 D-Dimer 1.35 ug/mIFEU (0-0.59) H 08/08/22 12:14 Sodium 139 mmol/L (136-145) 08/08/22 17:07 Potassium 2.6 mmol/L (3.5-5.1) L* 08/08/22 17:07 Chloride 106 mmol/L (98-107) 08/08/22 17:07 Carbon Dioxide 24 mmol/L (22-29) 08/08/22 17:07 Anion Gap 11.6 (5-19) 08/08/22 17:07 BUN 1 mg/dL (6-20) L 08/08/22 17:07 Creatinine 0.5 mg/dL (0.5-0.9) 08/08/22 17:07 GFR Calculation 138.1 mL/min (90-130) H 08/08/22 17:07 Glucose 108 mg/dL (65-115) 08/08/22 17:07 Calculated Osmolality 284 mOsm/kg (285-295) L 08/08/22 17:07 Calcium 8.1 mg/dL (8.5-10.5) L 08/08/22 17:07 Total Bilirubin 0.3 mg/dL (0.15-1.2) 08/08/22 17:07 AST 43 U/L (0-32) H 08/08/22 17:07 ALT 51 U/L (0-33) H 08/08/22 17:07 Alkaline Phosphatase 58 U/L (35-105) 08/08/22 17:07 Troponin T Baseline 11 ng/L (0-10) H 08/08/22 12:14 Troponin T 120 Minute 9.46 ng/L (0-10) 08/08/22 14:59 Delta Troponin T -1.54 ABS# (0-10) L 08/08/22 14:59 Total Protein 6.0 g/dL (6.6-8.7) L 08/08/22 17:07 Albumin 3.4 g/dL (3.5-5.2) L 08/08/22 17:07 Globulin 2.6 g/dL (1.3-4.6) 08/08/22 17:07 HCG, Qual Negative (Negative) 08/08/22 12:14 Discharge Plan Discharge Patient Disposition: Home Clinical Impression: Hypokalemia Condition: Stable Prescriptions: New K-Tab 20 mEq tablet extended release 20 meq PO BID Qty: 14 0RF No Action azithromycin 250 mg Tablet 250 mg PO . DIRECTED Zyprexa 5 mg Tablet 5 mg PO DAILY PRN (Reason: manic episode) Discharge Orders: Discharge ED (Routine); Ordered 08/08/22 Ordered By: Jose Espinal Discharge Diet: Usual diet Discharge Activity: Increase activity as tolerated Patient Instructions: Hypokalemia (ED) Activity Restrictions/Additional Instructions: Drink plenty of water and fluids. Healthy diet and activity. When in the heat and sweating make sure to replace electrolytes with Gatorade solution or other electrolyte solutions including Pedialyte or other sports drinks. Follow-up with primary care in 1 week for recheck potassium level. Return to ER for new concerns. Sign Out Sign Out Data: Patient Sign Out occurred on 08/08/22 at 17:19. Patient's care was discussed, and care was transferred from to Jose Espinal. Coding Level of Care Code ED Socket Puller for Galileo Cooper
[2022-08-08 12:33] LABS: Basophils # 0.1 10^3/uL (0.0-0.1); Basophils % 0.4 %; Eosinophils # 0.3 10^3/uL (0.0-0.8); Eosinophils % 2.7 %; Hematocrit 35.3 % (37.0-47.0); Hemoglobin 12.2 g/dL (11.5-15.3); Lymphocytes # 3.1 10^3/uL (0.8-4.8); Lymphocytes % 27.5 %; Mean Corpuscular HGB Conc 34.6 g/dL (30.0-36.0); Mean Corpuscular Volume 86.9 fl (81-99); Mean Platelet Volume 11.6 fL (7.4-10.4); Monocytes # 1.2 10^3/uL (0.2-0.9); Monocytes % 10.2 %; Neutrophils # 6.64 10^3/uL (1.8-7.7); Neutrophils % 58.8 %; Nucleated Red Blood Cells % 0 %; Platelet Count 339 10^3/cmm (130-400); Red Blood Count 4.06 10^6/uL (4.1-5.3); Red Cell Distribution Width 11.7 % (12.1-15.1); White Blood Count 11.3 10^3/uL (4.0-10.0)
[2022-08-08] MEDS: ipratropium-albuterol 3 mL Neb INHALATION (12:44)
[2022-08-08 12:46] LABS: HCG, Serum Qual Negative (Negative)
[2022-08-08 12:47] LABS: D Dimer 1.35 ug/mIFEU (0-0.59)
--- NOTE | 2022-08-08 12:49 | PC.NURSE ---
took over care of this patient
[2022-08-08 12:51] LABS: Troponin(5th) Baseline 11 ng/L (0-10)
[2022-08-08 12:53] LABS: Alanine Aminotransferase 61 U/L (0-33); Albumin Level 3.8 g/dL (3.5-5.2); Alkaline Phosphatase 68 U/L (35-105); Anion Gap 17.5 (5-19); Aspartate Amino Transferase 52 U/L (0-32); Blood Urea Nitrogen 2 mg/dL (6-20); Calcium 9.1 mg/dL (8.5-10.5); Carbon Dioxide 24 mmol/L (22-29); Chloride 95 mmol/L (98-107); Creatinine Clr Calc Pharmacy 149.9091; Globulin 2.8 g/dL (1.3-4.6); Glomerular Filtration Rate 138.1 mL/min (90-130); Glucose 97 mg/dL (65-115); Osmolality Calculated 274 mOsm/kg (285-295); Sodium 134 mmol/L (136-145); Total Bilirubin 0.3 mg/dL (0.15-1.2); Total Protein 6.6 g/dL (6.6-8.7)
[2022-08-08] MEDS: LORazepam 1 mg Tablet PO (12:55)
--- NOTE | 2022-08-08 12:59 | PC.NURSE ---
TURNED OVER CARE TO SIVAN RN AT [id number]
[2022-08-08 13:04] LABS: Potassium 2.5 mmol/L (3.5-5.1)
--- NOTE | 2022-08-08 13:15 | CTR_ITS ---
PROCEDURE INFORMATION: Exam: CTA Chest With Contrast Exam date and time: 08/08/2022 5:17 PM Age: 37 years old Clinical indication: Shortness of breath; Additional info: Shortness of breath and cough TECHNIQUE: Imaging protocol: Computed tomographic angiography of the chest with contrast. Exam focused on the arteries. Sagittal and coronal reformatted images were created and reviewed. 3D rendering (Not supervised by radiologist): MIP and/or 3D reconstructed images were created by the technologist. Radiation optimization: All CT scans at this facility use at least one of these dose optimization techniques: automated exposure control; mA and/or kV adjustment per patient size (includes targeted exams where dose is matched to clinical indication); or iterative reconstruction. Contrast material: OMNI 350; Contrast volume: 100 ml; Contrast route: INTRAVENOUS (IV); REPORTING DATA: Count of CT and Cardiac NM exams in prior 12 months: This patient has received 0 known CTs and 0 known cardiac nuclear medicine studies in the 12 months prior to the current study. COMPARISON: CR XR chest 2V* [id number] 08/08/2022 11:51 AM RADIATION DOSE METRICS: Total DLP (mGy-cm): 426.46 FINDINGS: Pulmonary arteries: No filling defects in the pulmonary arteries to suggest pulmonary embolism. Aorta: No evidence for aortic aneurysm or aortic dissection. Trachea: Tracheobronchial structures are patent. Lungs: Dependent atelectasis in the right lung. No focal consolidation. No pulmonary edema. No pulmonary parenchymal nodules or masses. Pleural spaces: No pneumothorax. No pleural effusion. Heart: No cardiomegaly. No pericardial effusion. Mediastinal space: No mediastinal hematoma. No pneumomediastinum. Lymph nodes: No lymphadenopathy. Liver: Small area of decreased density in the visualized liver adjacent to the falciform ligament, this most likely represents focal fatty infiltration. Pancreas: The visualized pancreas is unremarkable. No pancreatic ductal dilatation. Spleen: The visualized spleen is unremarkable. Adrenal glands: The visualized right and left adrenal glands are unremarkable. Kidneys and ureters: The visualized right and left kidneys are unremarkable. Bones/joints: No acute fracture. No dislocation. Soft tissues: The extrathoracic soft tissues are unremarkable. CT/CT angio chest PE protcl [id number] IMPRESSION: 1. No evidence for pulmonary embolism. 2. Dependent atelectasis in the right lung. 3. Incidental/nonacute findings are listed in the report.
[2022-08-08] MEDS: sodium chloride 0.9% 1,000 ML 999 ML IV (13:34)
[2022-08-08] MEDS: diphenhydrAMINE 50 mg/mL SDV 1mL IVP (13:34)
[2022-08-08] MEDS: lidocaine 1% 5 ML in potassium chloride premix 100 ML 26.25 ML IV (13:45)
--- NOTE | 2022-08-08 14:03 | ECG_ITS ---
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 Measurements Intervals [place] Rate: 91 P: 74 [place]: 133 QRS: 67 QRSD: 88 T: 68 QT: 399 QTc: 493 Interpretive Statements SINUS RHYTHM NONSPECIFIC T-WAVE ABNORMALITY Compared to ECG 08/08/2022 12:02:22 T-wave abnormality now present Electronically Signed On 08-08-2022 16:28:36 CDT by Elke Guzmán M.D. [email or web address]ison[facility] Powermer[facility] health lorain hospitalOfidium/store/[id number]
[2022-08-08 15:25] LABS: Troponin 5 2HR 9.46 ng/L (0-10)
[2022-08-08 15:26] LABS: Troponin 5 2HR Delta -1.54 ABS# (0-10)
--- NOTE | 2022-08-08 15:45 | PC.PHAR ---
Addendum entered by Mounika Hernandez 08/08/22 15:56: pts called back and states the pt has zyprexa 5mg daily prn that she can take for manic episodes prn pts states pt not taken in a while-pts states the pt had an old zpac and has taken 2 doses of it-notes are made in the pharmacy comments Original Note: unable to verify medications with pt called pts contact adrián [phone] no answer-ext only shows one thing filled 01/26/22 7d/s for doxycycline hyclate 100mg bid
[2022-08-08] MEDS: potassium chloride ER 20 mEq Tablet 40 MEQ PO (17:31)
[2022-08-08 17:42] LABS: Alanine Aminotransferase 51 U/L (0-33); Albumin Level 3.4 g/dL (3.5-5.2); Alkaline Phosphatase 58 U/L (35-105); Anion Gap 11.6 (5-19); Aspartate Amino Transferase 43 U/L (0-32); Calcium 8.1 mg/dL (8.5-10.5); Carbon Dioxide 24 mmol/L (22-29); Chloride 106 mmol/L (98-107); Creatinine Clr Calc Pharmacy 149.9091; Globulin 2.6 g/dL (1.3-4.6); Glomerular Filtration Rate 138.1 mL/min (90-130); Glucose 108 mg/dL (65-115); Sodium 139 mmol/L (136-145); Total Bilirubin 0.3 mg/dL (0.15-1.2)
--- NOTE | 2022-08-08 17:47 | ECG_ITS ---
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 Measurements Intervals [place] Rate: 77 P: 83 [place]: 121 QRS: 86 QRSD: 97 T: 66 QT: 448 QTc: 509 Interpretive Statements SINUS RHYTHM MODERATE ST DEPRESSION [0.05+ mV ST DEPRESSION] PROLONGED QT INTERVAL Compared to ECG 08/08/2022 14:03:38 ST (T wave) deviation now present Prolonged QT interval now present T-wave abnormality no longer present Electronically Signed On 08-09-2022 0:34:48 CDT by Elke Guzmán M.D. [id number]
[2022-08-08 17:48] LABS: Blood Urea Nitrogen 1 mg/dL (6-20); Osmolality Calculated 284 mOsm/kg (285-295); Potassium 2.6 mmol/L (3.5-5.1)
[2022-08-08] MEDS: potassium chloride oral liq 20 mEq/15 mL UDC 40 MEQ PO (18:31)
--- NOTE | 2022-08-12 11:51 | DCPLANNER ---
Patient was called due to no primary care physician - no answer at this time.
== END 2022-08-08 18:38 | disposition home or self-care (01) ==
PROVIDERS: Physician Assistant; Emergency Provider Nurse Practitioner Family
DX: E87.6 Hypokalemia (principal); J44.9 Chronic obstructive pulmonary disease, unspecified; Z86.19 Personal history of other infectious and parasitic diseases; Z87.820 Personal history of traumatic brain injury; F17.210 Nicotine dependence, cigarettes, uncomplicated
CPT/HCPCS: 36415; 71046; 71275; 80053; 84484; 84703; 85025; 85378; 93005; 94640; 96365; 96366; 96375; 99285; J1200; J3480; J7030; Q9967

== ENCOUNTER → 2022-08-16 13:50 | Outpatient (BNVA) | payer MEDICAID, SELFPAY | PROVIDERS: PCP Family Medicine Adult Medicine; Visit Provider Family Medicine Adult Medicine | DX: E87.6 Hypokalemia (principal); J30.9 Allergic rhinitis, unspecified; F39 Unspecified mood [affective] disorder; J44.9 Chronic obstructive pulmonary disease, unspecified; F17.200 Nicotine dependence, unspecified, uncomplicated; Z09 Encounter for follow-up examination after completed treatment for conditions other than malignant neoplasm; E66.9 Obesity, unspecified; Z83.3 Family history of diabetes mellitus | CPT/HCPCS: 80048; 83036 ==

== ENCOUNTER → 2023-12-13 14:27 | Outpatient (BNVA) | payer OTHER, SELFPAY | PROVIDERS: PCP Nurse Practitioner Family; Visit Provider Family Medicine | DX: F12.11 Cannabis abuse, in remission (principal) | CPT/HCPCS: 80307 ==

== ENCOUNTER → 2024-06-16 09:32 | Outpatient (BNVA) | payer MEDICAID, SELFPAY | PROVIDERS: PCP Nurse Practitioner Family; Visit Provider Nurse Practitioner Family | DX: Z02.83 Encounter for blood-alcohol and blood-drug test (principal) | CPT/HCPCS: 80307 ==

== ENCOUNTER → 2024-06-23 09:20 | Outpatient (BNVA) | payer MEDICAID, SELFPAY | PROVIDERS: PCP Nurse Practitioner Family; Visit Provider Nurse Practitioner Family | DX: Z02.83 Encounter for blood-alcohol and blood-drug test (principal) | CPT/HCPCS: 80307 ==

== ENCOUNTER → 2024-06-30 14:30 | Outpatient (BNVA) | payer MEDICAID, SELFPAY | PROVIDERS: PCP Nurse Practitioner Family; Visit Provider Nurse Practitioner Family | DX: Z02.83 Encounter for blood-alcohol and blood-drug test (principal) | CPT/HCPCS: 80307 ==

== ENCOUNTER → 2024-07-07 13:51 | Outpatient (BNVA) | payer MEDICAID, SELFPAY | PROVIDERS: PCP Nurse Practitioner Family; Visit Provider Nurse Practitioner Family | DX: Z02.83 Encounter for blood-alcohol and blood-drug test (principal) | CPT/HCPCS: 80307 ==

== ENCOUNTER → 2024-07-21 09:40 | Outpatient (BNVA) | payer MEDICAID, SELFPAY | PROVIDERS: PCP Nurse Practitioner Family; Visit Provider Nurse Practitioner Family | DX: Z02.83 Encounter for blood-alcohol and blood-drug test (principal) | CPT/HCPCS: 80307 ==

== ENCOUNTER → 2024-07-28 08:38 | Outpatient (BNVA) | payer MEDICAID, SELFPAY | PROVIDERS: PCP Nurse Practitioner Family; Referring Provider Nurse Practitioner Family; Visit Provider Nurse Practitioner Family | DX: Z02.83 Encounter for blood-alcohol and blood-drug test (principal) | CPT/HCPCS: 80307 ==

== ENCOUNTER → 2024-08-04 09:13 | Outpatient (BNVA) | payer MEDICAID, SELFPAY | PROVIDERS: PCP Nurse Practitioner Family; Referring Provider Nurse Practitioner Family; Visit Provider Nurse Practitioner Family | DX: F12.10 Cannabis abuse, uncomplicated (principal) | CPT/HCPCS: 80307 ==

== ENCOUNTER → 2024-08-11 11:00 | Outpatient (BNVA) | payer MEDICAID, SELFPAY | PROVIDERS: PCP Nurse Practitioner Family; Visit Provider Nurse Practitioner Family | DX: Z02.83 Encounter for blood-alcohol and blood-drug test (principal); N94.89 Other specified conditions associated with female genital organs and menstrual cycle | CPT/HCPCS: 80307; 81003 ==

== ENCOUNTER → 2024-08-18 09:19 | Outpatient (BNVA) | payer MEDICAID, SELFPAY | PROVIDERS: PCP Nurse Practitioner Family; Visit Provider Nurse Practitioner Family | DX: F12.10 Cannabis abuse, uncomplicated (principal) | CPT/HCPCS: 80307 ==

== ENCOUNTER → 2024-08-25 09:11 | Outpatient (BNVA) | payer MEDICAID, SELFPAY | PROVIDERS: PCP Nurse Practitioner Family; Referring Provider Nurse Practitioner Family; Visit Provider Nurse Practitioner Family | DX: Z02.83 Encounter for blood-alcohol and blood-drug test (principal) | CPT/HCPCS: 80307 ==

== ENCOUNTER → 2024-09-01 09:03 | Outpatient (BNVA) | payer MEDICAID, SELFPAY | PROVIDERS: PCP Nurse Practitioner Family; Visit Provider Nurse Practitioner Family | DX: Z02.83 Encounter for blood-alcohol and blood-drug test (principal) | CPT/HCPCS: 80307 ==

== ENCOUNTER → 2024-09-08 09:44 | Outpatient (BNVA) | payer MEDICAID, SELFPAY | PROVIDERS: PCP Nurse Practitioner Family; Visit Provider Nurse Practitioner Family | DX: F12.10 Cannabis abuse, uncomplicated (principal) | CPT/HCPCS: 80307 ==

== ENCOUNTER → 2024-09-15 10:33 | Outpatient (BNVA) | payer MEDICAID, SELFPAY | PROVIDERS: PCP Nurse Practitioner Family; Visit Provider Nurse Practitioner Family | DX: F12.10 Cannabis abuse, uncomplicated (principal) | CPT/HCPCS: 80307 ==

== ENCOUNTER → 2024-09-22 10:10 | Outpatient (BNVA) | payer MEDICAID, SELFPAY | PROVIDERS: Visit Provider Nurse Practitioner Family | DX: Z02.83 Encounter for blood-alcohol and blood-drug test (principal) | CPT/HCPCS: 80307 ==

== ENCOUNTER → 2024-09-29 09:42 | Outpatient (BNVA) | payer MEDICAID, SELFPAY | PROVIDERS: Referring Provider Nurse Practitioner Family; Visit Provider Nurse Practitioner Family | DX: Z02.83 Encounter for blood-alcohol and blood-drug test (principal) | CPT/HCPCS: 80307 ==

== ENCOUNTER → 2024-10-06 11:42 | Outpatient (BNVA) | payer MEDICAID, SELFPAY | PROVIDERS: Visit Provider Nurse Practitioner Family | DX: Z02.83 Encounter for blood-alcohol and blood-drug test (principal) | CPT/HCPCS: 80307 ==

== ENCOUNTER → 2024-10-13 10:23 | Outpatient (BNVA) | payer MEDICAID, SELFPAY | PROVIDERS: Referring Provider Nurse Practitioner Family; Visit Provider Nurse Practitioner Family | DX: Z02.83 Encounter for blood-alcohol and blood-drug test (principal) | CPT/HCPCS: 80307 ==

== ENCOUNTER → 2024-10-27 11:42 | Outpatient (BNVA) | payer MEDICAID, SELFPAY | PROVIDERS: Visit Provider Nurse Practitioner | DX: F12.10 Cannabis abuse, uncomplicated (principal) | CPT/HCPCS: 80307 ==

== ENCOUNTER → 2024-11-03 09:27 | Outpatient (BNVA) | payer MEDICAID, SELFPAY | PROVIDERS: Visit Provider Nurse Practitioner | DX: R30.9 Painful micturition, unspecified (principal) | CPT/HCPCS: 81000; 87086 ==